=== PATIENT | male | born 1945 | race Caucasian/White ===

== ENCOUNTER 2016-10-30 16:08 | Inpatient (IN) | payer MEDICARE ==
[~2016-10-30] VITALS: Ht 175.3 cm; Wt 88.6 kg
--- NOTE | ~2016-10-30 | FD ---
ADMIT: 10/30/2016 RM/LOC: 415 [facility] MR#: [id number] [address] [address] PENNY MCGUIRE [address] [place] [address] Final Diagnosis SEX: M AGE: 71 : 1945 ADMISSION DATE: 10/30/2016 DISCHARGE DATE: 11/01/2016 He was inpatient 10/30/2016 through 11/01/2016. He is a [facility] patient. FINAL DIAGNOSES: 1. Acute noncardiac chest pain. 2. Chronic coronary artery disease. 3. Chronic generalized pain. 4. Chronic obstructive pulmonary disease. 5. Type 2 diabetes. Balbir Lopez MD/ jeremiah JOB #: [id number] CC: Balbir Lopez MD, Attending Physician Balbir Lopez MD, Family Physician
[~2016-10-30 16:08] MED LIST: ALLFEN400 MG PO; ARTIFICIAL TEAR15 M1 OU; ASA CHILDREN'S81 MG PO; ASPIRIN EC81 MG PO; ATORVASTATIN 80 MG PO; BACITRACIN-POL3.5 GM TP; BISMUTH262 M1 PO; BUSPAR DPS15 MG PO; CAPSAICIN42.5 GM TP; CARAFATE DPS1 GM PO; CLARITIN10 M2 PO; CYMBALTA DPS60 MG PO; D3-20002000 UNIT PO; DAILY MULTIPLE1 EAC1 PO; DELTASONE DPS2.5 MG PO; DELTASONE DPS20 MG PO; DESYREL-DPS50 MG PO; DIBUCAINE28 GM PR; DIFLUCAN DPS200 MG PO; DUONEB DPS3 ML IH; FEOSOL-DPS325 MG PO; FERROUS SULFAT325 MG PO; FINASTERIDE5 MG PO; FLUDROCORTISON0.1 MG PO; FLUOXETINE HCL20 MG PO; FUROSEMIDE20 MG PO; GABAPENTIN300 MG PO; GENTEAL MILD15 ML OU; GLUCAGON1 MG/ML IM; GLUTOSE 1537.5 GM PO; GUAIFENESIN400 MG PO; HYDROCODON-ACE1 EAC6 PO; IMDUR DPS30 MG PO; INSULIN GLARGINE SQ; LANTUS SIN100 UNITS/ SQ; LASIX DPS20 MG PO; LEVAQUIN DPS500 MG PO; LEVAQUIN750 MG PO; LEVEMIR100 UNIT/1 SQ; LIPITOR80 MG PO; LOMOTIL 2.5 MG PO; MAALOX DPS30 ML PO; MIDODRINE HCL5 MG PO; MIRALAX DPS17 GM PO; NORCO 5-325 TA1 EACH PO; NOVOLOG FL100 UNIT/1 SQ; NOVOLOG100 UNIT/1 SQ; OMEGA-3 DPS1000 MG PO; PANTOPRAZOLE EC PO; PREDNISONE PO; PREDNISONE2.5 MG PO; PRO-AMATINE2.5 MG PO; PROTONIX40 MG PO; PROVENTIL2.5 MG/3 M IH; REGLAN-DPS10 MG PO; STOMACH RELIEF262 M1 PO; SURFAK DPS240 MG PO; SYMBICORT 160/4.5MCG; SYMBICORT 160/4.5MCG IH; SYMBICORT160 MCG/6 IH; TOPROL XL DPS25 MG PO; TOPROL XL DPS50 MG PO; TYLENOL DPS325 MG PO; TYLENOL325 MG PO; VITAMIN D-32000 UNIT PO
--- NOTE | 2016-10-31 11:43 | HP ---
ADMIT: 10/30/2016 RM/LOC: 310 [facility] MR#: [id number] [address] [address] PENNY MCGUIRE [address] [place] [address] History and Physical SEX: M AGE: 71 : 1945 DATE OF SERVICE: CHIEF COMPLAINT AND HISTORY OF PRESENT ILLNESS: Penny Mcguire was transferred by ambulance with chest pain. [facility] is a [facility] patient, who needs admission and admitting on City Call basis since the [facility] is on diversion. In the middle of the afternoon, he developed this pressure in the center of his chest, currently rated 8/10, radiating into his jaw and his left arm associated with a little bit of shortness of breath. No nausea, vomiting, or diaphoresis with it. He has been treated since he got here with nitroglycerin both subcutaneous and now IV. He has been treated with morphine. He has had aspirin today, oxygen and now heparin. He has had cardiac pacing with history of four-vessel bypass and prior cardiac coronary [facility] st[facility] the [facility]. He has multiple other medical problems, which we will discuss below as well. His EKG shows what appears to be an old anteroseptal infarct, post- ischemic changes more laterally. He says he has not been acutely ill otherwise and really these medical problems have been stable. I discussed the case with Dr. Gordon and with Dr. Med Garcia, who will come in to evaluate the patient. PAST MEDICAL HISTORY: Multiple problems including COPD, coronary artery disease, hypertension, hyperlipidemia, type 2 diabetes, pulmonary hypertension, congestive heart failure, valvular heart disease, acid reflux, peripheral vascular disease, dyslipidemia, lumbar compression fracture, depression, prior DVT. PAST SURGICAL HISTORY: Coronary artery bypass and stents, also history of stents in his legs, appendectomy, cholecystectomy, tonsillectomy, and bilateral cataract surgeries. ALLERGIES: PENICILLIN, SULFA, AND KEFLEX. MEDICATIONS: 1. Tylenol. 2. Albuterol. 3. Aspirin. 4. Atorvastatin. 5. Budesonide. 6. BuSpar. 7. Vitamin D3. 8. Cymbalta. 9. Ferrous sulfate. 10.Proscar. 11.Lasix. 12.Gabapentin. 13.Guaifenesin. 14.NovoLog by sliding scale. 15.Glargine insulin 35 units every morning and 20 units every evening. 16.Isosorbide mononitrate 30 mg every morning. 17.Loratadine. ADMIT: 10/30/2016 RM/LOC: 310 [facility] MR#: [id number] [address] [place] [id number] [place], [place] [address] [address] [place] [address] History and Physical SEX: M AGE: 71 : 1945 18.Metoprolol. 19.Midodrine. 20.Multivitamin with mineral supplement. 21.Protonix. 22.MiraLAX. 23.Prednisone 5 mg daily. 24.Carafate 1 q.i.d. 25.Trazodone 50 mg at bedtime. FAMILY HISTORY: Positive for coronary artery disease in first-degree relatives. SOCIAL HISTORY: Continues to smoke. Prior alcohol use, , lives with one of his children. He is on disability. REVIEW OF SYSTEMS: CVS: In the above history. RESPIRATORY: COPD but no recent exacerbations. ENT: Nothing acute. EYES: He has had cataract surgeries in the last several months on both eyes. GI: No abdominal pain, no vomiting, no bowel changes. : Has some slowness of his urination unchanged. SKIN: No rashes. NEURO: Nothing acute. PSYCH: Mental illness is stable. MUSCLE, BONE, AND JOINT: Nothing acute. PHYSICAL EXAMINATION: GENERAL: He is alert, calm, appears uncomfortable. He appears older than his stated age. VITAL SIGNS: 117/55 with MAP of 73, O2 of 97%, pulse is 96, respirations 20, he is afebrile. HEENT: Has wax in both ears but can hear adequately. No nasal discharge. Throat is clear. Eyes appear grossly normal. Sclerae anicteric. NECK: No masses or tenderness or enlarged thyroid. HEART: Regular at this time with soft murmur of lower left sternal border. LUNGS: Slightly diminished but clear throughout. ABDOMEN: Nontender. No masses appreciated. No guarding. No rebound. No organomegaly. GENITALIA: Unremarkable to cursory exam. SKIN: No acute rashes. EXTREMITIES: Upper extremities grossly normal. Lower extremities, minor edema in his legs. Otherwise, no gross abnormalities. BACK: Nontender. ADMIT: 10/30/2016 RM/LOC: 310 [facility] MR#: [id number] [address] [place], [place] [address] [address] History and Physical SEX: M AGE: 71 : 1945 IMPRESSION: 1. Unstable angina. 2. Coronary artery disease. 3. Type 2 diabetes. 4. Chronic obstructive pulmonary disease. 5. Hypertension. 6. Peripheral vascular disease. PLAN: As noted, I discussed the case Dr. Med Garcia, who will come and evaluate the patient. We will monitor for his other general medical needs. We will defer primary management to Dr. Garcia at this time. Balbir Lopez MD/ jeremiah JOB #: [id number] CC: Balbir Lopez MD, Attending Physician Balbir Lopez MD, Family Physician
--- NOTE | 2016-11-01 11:45 | ER ---
ADMIT: 10/30/2016 RM/LOC: ER [facility] MR#: [id number] [address] [address] [place] [address] Emergency Room Report SEX: M AGE: 71 : 1945 DATE: 10/30/2016 ADDENDUM: A 71-year-old white male coming with chest pain. He has a history of coronary disease, continues to smoke, COPD, insulin-dependent diabetes, question compliance. He has significant disease overall. Daughter also says that when he gets nitroglycerin, it dumps his pressures. So we started him on a nitroglycerin drip, given him morphine. We are controlling his pain at this time. CBC, chemistry, and troponin negative. At this time, we do believe the [facility] is [facility], so he is going to stay here. I spoke with Dr. Lopez, he will need to admit him. CONDITION AT DISCHARGE: Serious but stable. Hero Gordon MD/ jeremiah JOB #: [id number] CC: Hero Gordon MD, Attending Physician
[2016-11-01] MEDS ORDERED: ASPIRIN EC81 MG PO (12:33)
[2016-11-01] MEDS ORDERED: ATORVASTATIN CA40 MG PO (12:33)
[2016-11-01] MEDS ORDERED: BUSPAR DPS15 MG PO (12:34)
[2016-11-01] MEDS ORDERED: SYMBICORT 16010.2 GM IH (12:34)
[2016-11-01] MEDS ORDERED: CYMBALTA60 MG PO (12:34)
[2016-11-01] MEDS ORDERED: VITAMIN D-32000 UNI1 PO (12:34)
[2016-11-01] MEDS ORDERED: FEOSOL-DPS325 MG PO (12:35)
[2016-11-01] MEDS ORDERED: ORGAN-I NR200 MG PO (12:35)
[2016-11-01] MEDS ORDERED: PROSCAR DPS5 MG PO (12:35)
[2016-11-01] MEDS ORDERED: LASIX DPS20 MG PO (12:35)
[2016-11-01] MEDS ORDERED: ASPART SQ (12:37)
[2016-11-01] MEDS ORDERED: IMDUR DPS30 MG PO (12:37)
[2016-11-01] MEDS ORDERED: GLARGINE SQ (12:37)
[2016-11-01] MEDS ORDERED: THERA1 EACH PO (12:38)
[2016-11-01] MEDS ORDERED: MIDODRINE HCL5 MG PO (12:38)
[2016-11-01] MEDS ORDERED: CLARITIN DPS10 MG PO (12:38)
[2016-11-01] MEDS ORDERED: TOPROL XL25 MG PO (12:38)
[2016-11-01] MEDS ORDERED: CARAFATE DPS1 GM PO (12:39)
[2016-11-01] MEDS ORDERED: FLOMAX DPS0.4 MG PO (12:39)
[2016-11-01] MEDS ORDERED: DESYREL-DPS50 MG PO (12:39)
[2016-11-01] MEDS ORDERED: DELTASONE DPS5 MG PO (12:39)
[2016-11-01] MEDS ORDERED: MIRALAX PACKET17 GM PO (12:39)
[2016-11-01] MEDS ORDERED: PROTONIX40 MG PO (12:39)
[2016-11-01] MEDS ORDERED: NITROSTAT0.4 MG SL (12:40)
[2016-11-01] MEDS ORDERED: PROVENTIL2.5 MG/3 M IH (12:40)
[2016-11-01] MEDS ORDERED: TYLENOL DPS325 MG PO (12:40)
[2016-11-01] MEDS ORDERED: NORCO 5-325 TA1 EACH PO (12:40)
--- NOTE | 2016-11-13 17:29 | CO ---
ADMIT: 10/30/2016 RM/LOC: 310 [facility] MR#: [id number] [address] [address] PENNY MCGUIRE [address] [place] [address] Consultation SEX: M AGE: 71 : 1945 DATE OF CONSULTATION: 10/30/2016 ATTENDING PHYSICIAN: Balbir Lopez MD CONSULTING PHYSICIAN: Med Garcia MD REASON FOR CONSULT: Chest pain. HISTORY OF PRESENT ILLNESS: Penny is a 71-year-old, who is known to our service. We have seen him on multiple occasions in the past. He has known coronary artery disease with previous bypass [facility] the [facility] in 2011. I think his actual surgery was at the [facility], but I do not know his bypass grafts. He continues to use tobacco. He has peripheral vascular disease with prior iliac stents. I was asked to see him at the request of Dr. Lopez this evening after he started having chest discomfort about 2:00 this afternoon. He said he was just watching TV when he had sudden onset of sharp, stabbing chest pain in the center of his chest into his left arm. He denies any significant associated symptoms such as diaphoresis or significant shortness of breath. He denies any nausea or vomiting. He describes the symptoms as severe and he says they kind of wax and wane. In the emergency room, his EKG shows T-wave inversion in I and aVL and poor R- wave progression. This is similar to his previous EKGs. His initial cardiac enzymes were negative about 2-1/2 hours after the onset of his discomfort. He was given morphine, he has been started on nitroglycerin drip and heparin drip. He is still uncomfortable, but says his pain has improved. ALLERGIES: TO PENICILLIN, SULFA, AND CEPHALEXIN. PAST SURGICAL HISTORY: Include tonsillectomy, cholecystectomy, appendectomy, and his previous bypass surgery. PAST MEDICAL HISTORY: Illnesses include depression; history of vertebral compression fracture, status post kyphoplasty with chronic back pain; type 2 diabetes with neuropathy; anxiety disorder; COPD; osteoarthritis; history of pulmonary hypertension. He had orthostatic hypotension; BPH; and says he [facility], currently, he has chronic pain. Questionable history of DVT and pulmonary hypertension. He has been on previous antibiotic and steroid tapers. FAMILY HISTORY: He says he has a brother and sister, who both had premature coronary artery disease. There is also family history of diabetes and hypertension. SOCIAL HISTORY: He is living with his daughter. His ex- is . He denies alcohol use. For the past 20 years, he continues to smoke, but says he is cutting back. ADMIT: 10/30/2016 RM/LOC: 310 [facility] MR#: [id number] [address] [place] [address] [place] [address] Consultation SEX: M AGE: 71 : 1945 MEDICATIONS: I do not have his current medical list, but from his last hospitalization in June he was on: 1. Tylenol. 2. Aspirin. 3. DuoNeb inhaler. 4. Lipitor. 5. Symbicort. 6. BuSpar. 7. Vitamin D. 8. Cymbalta. 9. Proscar. 10.Lasix. 11.Gabapentin. 12.Guaifenesin. 13.NovoLog and Levemir insulin. 14.Imdur. 15.Claritin. 16.Reglan. 17.Metoprolol. 18.Midodrine. 19.Multivitamin. 20.Protonix. 21.MiraLax. 22.Sucralfate. 23.Trazodone. 24.Iron. 25.Maalox. REVIEW OF SYSTEMS: A full 12-point review of systems was reviewed with the patient and although positive for multiple systems noncontributory to his current complaints and presentation. PHYSICAL EXAMINATION: VITAL SIGNS: His blood pressure is 127/86, his pulse is 86, respirations are 18, he is afebrile. GENERAL: He is pale. He is alert. He appears in just very mild distress. He answers all questions appropriately. He is not diaphoretic or clammy. SKIN: Pale multiple tattoos, but no rashes, warm, dry, well perfused. EYES: There is some scleral injection. ENT: He is edentulous. He has bilateral carotid bruits, right greater than left. HEART: Regular, distant. Normal S1, S2, is preserved. There is a soft systolic murmur at the base. I do not think it radiates to the carotids. I cannot feel the point of maximum impulse. CHEST: There is poor air movement throughout with mildly prolonged expiratory phase and a few scattered rhonchi. Respirations are even and unlabored. Lungs are clear to auscultation. ABDOMEN: Mildly obese. Nontender. Bowel sounds are active. ADMIT: 10/30/2016 RM/LOC: 310 [facility] MR#: [id number] [address] [place] [address] [place] [address] [place] [address] Consultation SEX: M AGE: 71 : 1945 EXTREMITIES: There is hair loss over his lower extremities. His femoral pulses are 2+. Distal pulses are decreased, but symmetric. No significant edema. MUSCULOSKELETAL: Gait is normal. PSYCH: Alert and oriented. Mood and affect are appropriate. LABORATORY DATA: His CK is 50, his troponin is less than 0.015, proBNP was 1800, hemoglobin is 11.2, platelet count 193,000, creatinine is 1.1, BUN 40, potassium is 4.0, his glucose is 266. White count is 8.2, hemoglobin 11.2, and platelet count 193,000. IMAGING: Chest x-ray suggests mild congestive failure, his aortic silhouette does not appear enlarged. IMPRESSION: 1. Atypical chest pain. 2. Known coronary artery disease with previous bypass surgery in 2011. 3. Insulin-dependent type 2 diabetes. 4. Tobacco abuse. 5. History of orthostasis. 6. Chronic obstructive pulmonary disease. 7. Peripheral vascular disease with prior iliac stents. 8. History of deep vein thrombosis. 9. History of vertebral compression fractures. RECOMMENDATIONS: The atypical features to his chest pain were sharp shooting and transient with no significant associated symptoms. His pain has been rather severe, and I would have expected some EKG changes or changes in his enzymes given the degree of his pain. He does have a history of musculoskeletal pain and some of his symptoms almost sound pleuritic. Nevertheless, he has known coronary disease and ongoing risk factors including his insulin-dependent diabetes and ongoing tobacco abuse. I am going to repeat his enzymes now and we will trend them to see if there is any significant change. His EKG is unchanged, and he has had chronic T-wave inversion in the lateral leads I and aVL for years that I look back. We will continue his heparin and treat his pain symptomatically for now and decide ultimately about further ischemic evaluation based on his clinical course. Med Garcia MD/ kathleenl JOB #: [id number] CC: Balbir Lopez MD, Attending Physician Balbir Lopez MD, Family Physician
[2017-04-02] MEDS ORDERED: TYLENOL DPS325 MG PO (16:36)
[2017-04-02] MEDS ORDERED: BISMUTH SUBSALICYLATE PO (16:37)
[2017-04-02] MEDS ORDERED: IPRAT-ALBUT 0.5-3 ML IH (16:37)
[2017-04-02] MEDS ORDERED: ATORVASTATIN CA80 MG PO (16:37)
[2017-04-02] MEDS ORDERED: ASA CHILDREN'S81 MG PO (16:37)
[2017-04-02] MEDS ORDERED: BUSPAR DPS15 MG PO (16:45)
[2017-04-02] MEDS ORDERED: SYMBICORT160 MCG/6 IH (16:45)
[2017-04-02] MEDS ORDERED: VITAMIN D2000 UNI1 PO (16:46)
[2017-04-02] MEDS ORDERED: LASIX DPS20 MG PO ×2 (16:46→16:57)
[2017-04-02] MEDS ORDERED: FEOSOL-DPS325 MG PO (16:46)
[2017-04-02] MEDS ORDERED: PROSCAR DPS5 MG PO ×2 (16:46→16:56)
[2017-04-02] MEDS ORDERED: ORGAN-I NR200 MG PO ×2 (16:47→16:58)
[2017-04-02] MEDS ORDERED: NORCO 7.5-3251 EACH PO (16:59)
[2017-04-02] MEDS ORDERED: NOVOLOG FL100 UNIT/1 SQ (17:02)
[2017-04-02] MEDS ORDERED: MIDODRINE HCL5 MG PO (17:04)
[2017-04-02] MEDS ORDERED: LOPRESSOR DPS50 MG PO (17:04)
[2017-04-02] MEDS ORDERED: CLARITIN DPS10 MG PO (17:04)
[2017-04-02] MEDS ORDERED: IMDUR DPS30 MG PO (17:04)
[2017-04-02] MEDS ORDERED: LANTUS100 UNITS/ SQ (17:04)
[2017-04-02] MEDS ORDERED: THERA-M1 EACH PO (17:05)
[2017-04-02] MEDS ORDERED: NICOTINE GUM2 MG PO (17:05)
[2017-04-02] MEDS ORDERED: NITROSTAT0.4 MG SL (17:06)
[2017-04-02] MEDS ORDERED: ZANTAC DPS150 MG PO (17:06)
[2017-04-02] MEDS ORDERED: DELTASONE DPS5 MG PO (17:06)
[2017-04-02] MEDS ORDERED: ZOFRAN4 MG PO (17:06)
[2017-04-02] MEDS ORDERED: RANEXA500 MG PO (17:07)
[2017-04-02] MEDS ORDERED: DESYREL-DPS50 MG PO (17:07)
[2017-04-02] MEDS ORDERED: FLOMAX DPS0.4 MG PO (17:07)
[2017-04-02] MEDS ORDERED: PURE & GENTLE E15 ML OU (17:08)
[2017-04-02] MEDS ORDERED: MIRALAX PACKET17 GM PO (17:08)
[2017-04-02] MEDS ORDERED: LEVAQUIN DPS500 MG PO (17:08)
== END 2016-11-01 11:52 | disposition home or self-care (01) | DRG 313 ==
LOC: ER 16:08 → 3ICU 17:45 → 4PCU 10-31 11:22
PROVIDERS: ADMIT Family Medicine
DX: R07.89 Other chest pain (principal); I25.10 Atherosclerotic heart disease of native coronary artery without angina pectoris; I13.0 Hypertensive heart and chronic kidney disease with heart failure and stage 1 through stage 4 chronic kidney disease, or unspecified chronic kidney disease; E11.40 Type 2 diabetes mellitus with diabetic neuropathy, unspecified; I50.9 Heart failure, unspecified; E11.51 Type 2 diabetes mellitus with diabetic peripheral angiopathy without gangrene; G89.29 Other chronic pain; J44.9 Chronic obstructive pulmonary disease, unspecified; F17.200 Nicotine dependence, unspecified, uncomplicated; E78.5 Hyperlipidemia, unspecified; I27.2 Other secondary pulmonary hypertension; K21.9 Gastro-esophageal reflux disease without esophagitis; N40.0 Benign prostatic hyperplasia without lower urinary tract symptoms; M19.90 Unspecified osteoarthritis, unspecified site; F41.9 Anxiety disorder, unspecified; F32.9 Major depressive disorder, single episode, unspecified; Z86.718 Personal history of other venous thrombosis and embolism; Z95.5 Presence of coronary angioplasty implant and graft; Z79.4 Long term (current) use of insulin; Z95.1 Presence of aortocoronary bypass graft; Z79.82 Long term (current) use of aspirin; Z82.49 Family history of ischemic heart disease and other diseases of the circulatory system

== ENCOUNTER → 2017-01-14 | Outpatient (CLI) | payer MEDICARE ==
[~2017-01-14] MED LIST changes: +ASPART SQ; +ATORVASTATIN CA40 MG PO; +ATORVASTATIN CA80 MG PO; +BISMUTH SUBSALICYLATE PO; +CLARITIN DPS10 MG PO; +CYMBALTA60 MG PO; +DELTASONE DPS5 MG PO; +FLOMAX DPS0.4 MG PO; +GLARGINE SQ; +IPRAT-ALBUT 0.5-3 ML IH; +LANTUS100 UNITS/ SQ; +LOPRESSOR DPS50 MG PO; +MIRALAX PACKET17 GM PO; +NICOTINE GUM2 MG PO; +NITROSTAT0.4 MG SL; +NORCO 7.5-3251 EACH PO; +ORGAN-I NR200 MG PO; +PROSCAR DPS5 MG PO; +PURE & GENTLE E15 ML OU; +RANEXA500 MG PO; +SYMBICORT 16010.2 GM IH; +THERA-M1 EACH PO; +THERA1 EACH PO; +TOPROL XL25 MG PO; +VITAMIN D-32000 UNI1 PO; +VITAMIN D2000 UNI1 PO; +ZANTAC DPS150 MG PO; +ZOFRAN4 MG PO
== END | disposition home or self-care (01) ==
LOC: RAD.S 09:56
DX: R07.9 Chest pain, unspecified (principal); I25.719 Atherosclerosis of autologous vein coronary artery bypass graft(s) with unspecified angina pectoris

== ENCOUNTER 2017-02-09 20:44 | Emergency (ER) | payer MEDICARE ==
[~2017-02-09 20:44] MED LIST changes: -ATORVASTATIN CA80 MG PO; -BISMUTH SUBSALICYLATE PO; -IPRAT-ALBUT 0.5-3 ML IH; -LANTUS100 UNITS/ SQ; -LOPRESSOR DPS50 MG PO; -NICOTINE GUM2 MG PO; -NORCO 7.5-3251 EACH PO; -PURE & GENTLE E15 ML OU; -RANEXA500 MG PO; -THERA-M1 EACH PO; -VITAMIN D2000 UNI1 PO; -ZANTAC DPS150 MG PO; -ZOFRAN4 MG PO
--- NOTE | 2017-02-15 19:43 | ER ---
ADMIT: 02/09/2017 RM/LOC: ER [facility] MR#: [id number] [id number] [place], [place] [address] PENNY MCGUIRE [address] [place] [address] Emergency Room Report SEX: M AGE: 71 : 1945 DATE: 02/09/2017 The patient is a 71-year-old, [place] patient with COPD, type 2 diabetes, valvular heart disease, coronary artery disease, pulmonary hypertension, previous DVT, and peripheral vascular disease, who continues to smoke, comes in tonight with acute exacerbation of COPD, cough, and exacerbation of his GERD. Does admit to eructations. The patient took 1 nitroglycerin prior to arrival with no significant improvement. Paramedics also treated with 1 nitroglycerin, aspirin, and DuoNeb with improvement. On arrival, the patient received 2 more DuoNeb, Solu-Medrol, magnesium, Protonix, and GI cocktail with even further improvement. Chest x-ray showed no infiltrate. EKG showed sinus rhythm with lateral T-wave changes, unchanged from June 29, 2016. Hemoglobin 12.7, lactic 1.2, CRP 0.64. Initial troponin 0.017. Subsequent 4-hour delta troponin less than 0.015. BN peptide 1422. Urine; 1 wbc, 2 rbc's, procalcitonin 0.07. Discussed findings with Dr. Wheeler, who agreed to accept. Arrangements made by [facility] to transport. Dorian Patton MD/ jeremiah JOB #: [id number] CC: Dorian Patton MD, Attending Physician [facility] Phys[facility], Family Physician Francisca Wheeler MD PhD
[2017-04-02] MEDS ORDERED: TYLENOL DPS325 MG PO (16:36)
[2017-04-02] MEDS ORDERED: ASA CHILDREN'S81 MG PO (16:37)
[2017-04-02] MEDS ORDERED: ATORVASTATIN CA80 MG PO (16:37)
[2017-04-02] MEDS ORDERED: BISMUTH SUBSALICYLATE PO (16:37)
[2017-04-02] MEDS ORDERED: IPRAT-ALBUT 0.5-3 ML IH (16:37)
[2017-04-02] MEDS ORDERED: SYMBICORT160 MCG/6 IH (16:45)
[2017-04-02] MEDS ORDERED: BUSPAR DPS15 MG PO (16:45)
[2017-04-02] MEDS ORDERED: FEOSOL-DPS325 MG PO (16:46)
[2017-04-02] MEDS ORDERED: VITAMIN D2000 UNI1 PO (16:46)
[2017-04-02] MEDS ORDERED: PROSCAR DPS5 MG PO ×2 (16:46→16:56)
[2017-04-02] MEDS ORDERED: LASIX DPS20 MG PO ×2 (16:46→16:57)
[2017-04-02] MEDS ORDERED: ORGAN-I NR200 MG PO ×2 (16:47→16:58)
[2017-04-02] MEDS ORDERED: NORCO 7.5-3251 EACH PO (16:59)
[2017-04-02] MEDS ORDERED: NOVOLOG FL100 UNIT/1 SQ (17:02)
[2017-04-02] MEDS ORDERED: IMDUR DPS30 MG PO (17:04)
[2017-04-02] MEDS ORDERED: LOPRESSOR DPS50 MG PO (17:04)
[2017-04-02] MEDS ORDERED: LANTUS100 UNITS/ SQ (17:04)
[2017-04-02] MEDS ORDERED: CLARITIN DPS10 MG PO (17:04)
[2017-04-02] MEDS ORDERED: MIDODRINE HCL5 MG PO (17:04)
[2017-04-02] MEDS ORDERED: THERA-M1 EACH PO (17:05)
[2017-04-02] MEDS ORDERED: NICOTINE GUM2 MG PO (17:05)
[2017-04-02] MEDS ORDERED: DELTASONE DPS5 MG PO (17:06)
[2017-04-02] MEDS ORDERED: ZOFRAN4 MG PO (17:06)
[2017-04-02] MEDS ORDERED: ZANTAC DPS150 MG PO (17:06)
[2017-04-02] MEDS ORDERED: NITROSTAT0.4 MG SL (17:06)
[2017-04-02] MEDS ORDERED: FLOMAX DPS0.4 MG PO (17:07)
[2017-04-02] MEDS ORDERED: RANEXA500 MG PO (17:07)
[2017-04-02] MEDS ORDERED: DESYREL-DPS50 MG PO (17:07)
[2017-04-02] MEDS ORDERED: PURE & GENTLE E15 ML OU (17:08)
[2017-04-02] MEDS ORDERED: MIRALAX PACKET17 GM PO (17:08)
[2017-04-02] MEDS ORDERED: LEVAQUIN DPS500 MG PO (17:08)
== END 2017-02-10 02:36 ==
LOC: ER 20:44
DX: J44.1 Chronic obstructive pulmonary disease with (acute) exacerbation (principal); I25.10 Atherosclerotic heart disease of native coronary artery without angina pectoris; E11.9 Type 2 diabetes mellitus without complications; E78.5 Hyperlipidemia, unspecified; I73.9 Peripheral vascular disease, unspecified; F32.9 Major depressive disorder, single episode, unspecified; F17.210 Nicotine dependence, cigarettes, uncomplicated; Z90.49 Acquired absence of other specified parts of digestive tract; Z95.1 Presence of aortocoronary bypass graft; Z95.5 Presence of coronary angioplasty implant and graft; Z98.890 Other specified postprocedural states; Z86.718 Personal history of other venous thrombosis and embolism; Z88.0 Allergy status to penicillin; Z88.2 Allergy status to sulfonamides; Z88.8 Allergy status to other drugs, medicaments and biological substances; Z90.89 Acquired absence of other organs